=== PATIENT | female | born 1995 | race Caucasian/White ===

== ENCOUNTER 2019-08-26 13:38 | Emergency (ER) | payer BC, MEDICAID ==
[2019-08-26 17:25] VITALS: BP 121/80
--- NOTE | 2019-08-26 17:31 | UC ---
Throat Pain/Nasal Chris HPI - HPI Summary HPI Summary: subjective fever, sore throat for 2 days - History of Current Complaint Chief Complaint: UCGeneralIllness Stated Complaint: FEVER, SORE THROAT Time Seen by Provider: 08/26/19 16:08 Hx Obtained From: Patient Hx Last Menstrual Period: ?: No Onset/Duration: Sudden Onset, Lasting Days - 2 Pain Intensity: 2 Pain Scale Used: 0-10 Numeric Cough: None Associated Signs & Symptoms: Positive: Fever - subjective report - Allergies/Home Medications Allergies/Adverse Reactions: Allergies Allergy/AdvReac Type Severity Reaction Status Date / Time No Known Allergies Allergy Verified 08/30/19 04:19 Home Medications: Home Medications Norgestimate-Ethinyl Estradiol [Ortho-Cyclen 0.25-35 Mg-Mcg] 1 tab PO DAILY #1 vivien 11/24/13 [Clinic Confirmed 08/30/19] Acetaminophen [Tylenol Extra Strength] 1,000 mg PO ONCE PRN 08/28/19 [History Confirmed 08/30/19] Ibuprofen TAB* [Advil TAB*] 600 mg PO ONCE PRN 08/28/19 [History Confirmed 08/29] PMH/Surg Hx/FS Hx/Imm Hx - Additional Past Medical History Additional PMH: no know exposure to covid 19 Previously Healthy: Yes - Surgical History Surgical History: Yes Surgery Procedure, Year, and Place: ACL- 2013. [facility] - [facility] - 2010 - Family History Known Family History: Positive: None - Social History Occupation: Student Lives: With Family Alcohol Use: Weekly Substance Use Type: None Smoking Status (MU): Never Smoked Tobacco Review of Systems All Other Systems Reviewed And Are Negative: Yes Constitutional: Positive: Fever - subjective Skin: Positive: Negative Eyes: Positive: Negative ENT: Positive: Sore Throat Respiratory: Positive: Negative Cardiovascular: Positive: Negative Gastrointestinal: Positive: Negative Genitourinary: Positive: Negative Motor: Positive: Negative Neurovascular: Positive: Negative Musculoskeletal: Positive: Negative Neurological/Mental Status: Positive: Negative Psychological: Positive: Negative Is Patient Immunocompromised?: No Physical Exam Triage Information Reviewed: Yes Appearance: Well-Appearing, No Pain Distress, Well-Nourished Vital Signs: Initial Vital Signs Temp 97.9 F 08/26/19 17:21 Pulse 75 08/26/19 17:21 Resp 16 08/26/19 17:21 BP 121/80 03/14/20 17:21 Pulse Ox 100 08/26/19 17:21 Vital Signs Reviewed: Yes Eye Exam: Normal Eyes: Positive: Conjunctiva Clear ENT Exam: Normal ENT: Positive: Normal ENT inspection, Hearing grossly normal, TMs normal. Negative: Nasal congestion, Nasal drainage, Tonsillar swelling, Tonsillar exudate, Trismus, Muffled voice, Hoarse voice Dental Exam: Normal Neck exam: Normal Neck: Positive: Supple, Nontender Respiratory Exam: Normal Respiratory: Positive: Chest non-tender, Lungs clear, Normal breath sounds, No respiratory distress, No accessory muscle use Cardiovascular Exam: Normal Cardiovascular: Positive: RRR, No Murmur, Pulses Normal, Brisk Capillary Refill Musculoskeletal Exam: Normal Musculoskeletal: Positive: Strength Intact, ROM Intact, No Edema Neurological Exam: Normal Neurological: Positive: Alert, Muscle Tone Normal Psychological Exam: Normal Skin Exam: Normal Diagnostics - Laboratory Lab Results: rst - influenza a/b - Throat Pain/Nasal Course/Dx - Course Course Of Treatment: rest increase fluids, tylenol ibuprofen follow with pcp should symptoms worsen or fail to improve - Differential Dx/Diagnosis Provider Diagnosis: Pharyngitis Discharge ED - Sign-Out/Discharge Documenting (check all that apply): Patient Departure All imaging exams completed and their final reports reviewed: No Studies - Discharge Plan Condition: Stable Disposition: HOME Patient Education Materials: Pharyngitis (ED), Viral Syndrome (ED) Referrals: [facility] [Outside] - If Needed - Billing Disposition and Condition Condition: STABLE Disposition: Home
[2019-08-26 17:49] LABS: Influenza A Molecular Negative (Negative); Influenza B Molecular Negative (Negative)
== END 2019-08-26 18:23 | disposition home or self-care (01) ==
LOC: UCEAST 13:38
DX: J02.9 Acute pharyngitis, unspecified (principal)
CPT/HCPCS: 87651; 99201; G0463

== ENCOUNTER 2019-08-28 11:59 | Emergency (ER) | payer BC, MEDICAID ==
[2019-08-28 15:06] VITALS: BP 119/75
--- NOTE | 2019-08-28 15:36 | UC ---
Throat Pain/Nasal Chris HPI - HPI Summary HPI Summary: 24 year old female presents for persistent sore throat and fever. She was seen at this facility on 08/26/2019 for same. Tested negative for flu and strep. Max temperature of 102.4 F 2 days ago. Last measured fever of 100.1 F was yesterday. Denies ear pain, dysphagia, nasal congestion, cough, chest pain, shortness of breath, abdominal pain, nausea, or vomiting. - History of Current Complaint Chief Complaint: UCRespiratory Stated Complaint: THROAT COMPLAINT Time Seen by Provider: 08/28/19 14:31 Hx Obtained From: Patient Hx Last Menstrual Period: 08/21/19 Pain Intensity: 6 - Allergies/Home Medications Allergies/Adverse Reactions: Allergies Allergy/AdvReac Type Severity Reaction Status Date / Time No Known Allergies Allergy Verified 08/28/19 15:06 Home Medications: Home Medications Norgestimate-Ethinyl Estradiol [Ortho-Cyclen 0.25-35 Mg-Mcg] 1 tab PO DAILY #1 vivien 11/24/13 [Clinic Confirmed 08/28/19] Acetaminophen [Tylenol Extra Strength] 1,000 mg PO ONCE PRN 08/28/19 [History Confirmed 08/28/19] Ibuprofen TAB* [Advil TAB*] 600 mg PO ONCE PRN 08/28/19 [History Confirmed 08/27] PMH/Surg Hx/FS Hx/Imm Hx Previously Healthy: Yes - Denies significant PMH - Surgical History Surgical History: Yes Surgery Procedure, Year, and Place: ACL- 2013. [facility] - [facility] - 2010 - Family History Family History: Denies significant FMH - Social History Lives: Dormitory/Roommates Alcohol Use: Weekly Substance Use Type: None Smoking Status (MU): Never Smoked Tobacco Review of Systems All Other Systems Reviewed And Are Negative: Yes Constitutional: Positive: Fever, Chills, Fatigue Skin: Negative: Rash Eyes: Negative: Drainage, Eye Redness ENT: Positive: Sore Throat. Negative: Ear Ache, Nasal Discharge, Sinus Congestion, Sinus Pain/Tenderness Respiratory: Negative: Shortness Of Breath, Cough Cardiovascular: Negative: Chest Pain Gastrointestinal: Negative: Abdominal Pain, Vomiting, Diarrhea, Nausea Genitourinary: Positive: Negative Musculoskeletal: Positive: Negative Neurological/Mental Status: Positive: Negative Is Patient Immunocompromised?: No Physical Exam - Summary Physical Exam Summary: GENERAL APPEARANCE: Well developed, well nourished, alert and cooperative, and appears to be in no acute distress. EYES: Conjunctiva clear. No drainage. EARS: External auditory canals and tympanic membranes clear, hearing grossly intact. NOSE: No nasal discharge. THROAT: Pharyngeal erythema. 1+ tonsils without exudate or lesions. Uvula midline. NECK: Neck supple, non-tender. Mild anterior cervical lymphadenopathy. CARDIAC: Normal S1 and S2. No S3, S4 or murmurs. Rhythm is regular. There is no peripheral edema, cyanosis or pallor. Extremities are warm and well perfused. Capillary refill is less than 2 seconds. Peripheral pulses intact. LUNGS: Clear to auscultation without rales, rhonchi, wheezing or diminished breath sounds. ABDOMEN: Positive bowel sounds. Soft, nondistended, nontender. No guarding or rebound. No masses or hepatosplenomegally. MUSKULOSKELETAL: ROM intact to all extremities. No joint erythema or tenderness. Normal muscular development. Normal gait. SKIN: Skin normal color, texture and turgor with no lesions or eruptions. Triage Information Reviewed: Yes Vital Signs: Initial Vital Signs Temp 97.8 F 08/28/19 15:01 Pulse 96 08/28/19 15:01 Resp 16 08/28/19 15:01 BP 119/75 08/28/19 15:01 Pulse Ox 100 08/28/19 15:01 Vital Signs Reviewed: Yes Throat Pain/Nasal Course/Dx - Course Course Of Treatment: 24 year old female presents for persistent sore throat and fever. She was seen at this facility on 08/26/2019 for same. Tested negative for flu and strep. Max temperature of 102.4 F 2 days ago. Last measured fever of 100.1 F was yesterday. Denies ear pain, dysphagia, nasal congestion, cough, chest pain, shortness of breath, abdominal pain, nausea, or vomiting. Afebrile. VSS. Patient had no nasal congestion, normal TMs, pharyngeal erythema, 1+ tonsils without exudate, mild anterior cervical lymphadenopathy, clear bilateral breath sounds, and otherwise unremarkable exam. Rapid strep test was negative. Reviewed results with patient. Recommending symptomatic treatment for a viral pharyngitis. Patient was offered a steroid to help with the pain and inflammation which the patient is agreeable. She was given dexamethasone 8 mg PO. She is to return here or follow up with primary care in 5-7 days if symptoms persist. Anticipatory guidance and warning symptoms were reviewed with patient. Verbalizes understanding and agrees with POC. - Differential Dx/Diagnosis Differential Diagnosis/HQI/PQRI: Mononucleosis, Peritonsillar Abscess, Pharyngitis, Tonsillitis, URI Provider Diagnosis: Viral pharyngitis Discharge ED - Sign-Out/Discharge Documenting (check all that apply): Patient Departure All imaging exams completed and their final reports reviewed: No Studies - Discharge Plan Condition: Stable Disposition: HOME Patient Education Materials: Pharyngitis (ED) Referrals: No Primary Care Phys,NOPCP [Primary Care Provider] - Additional Instructions: Your rapid strep test in the clinic today was negative. Your symptoms are likely from a viral infection. Viral infections do not respond to antibiotics and are limited to the treatment of symptoms. Viral infections typically run their course in 7-10 days. You were given a long-acting steroid called dexamethasone 8 mg in the clinic to help with the pain and swelling. Drink plenty of fluids to avoid dehydration especially if you are running any fever. Use salt water gargles several times a day. Take over the counter acetaminophen (Tylenol) or ibuprofen (Advil, Motrin) according to directions as needed for pain or fever. You may also use Chloraseptic spray or Cepacol lonzenges according to directions which contain a numbing medication and can provide some temporary relief from your sore throat. Return here or follow up with your primary care provider in 5-7 days if symptoms persist. Seek immediate medical attention in the emergency room if you have fever greater than 100.5 F despite taking acetaminophen or ibuprofen, are unable to swallow or develop drooling, are unable to open your mouth fully, are unable to eat or drink, have pain that is not relieved with over the counter pain medication, or have any difficulty breathing. - Billing Disposition and Condition Condition: STABLE Disposition: Home
[2019-08-28] MEDS ORDERED: Dexamethasone TAB* 4 MG PO ONE (15:52)
== END 2019-08-28 16:05 | disposition home or self-care (01) ==
LOC: UCEAST 11:59
DX: J02.8 Acute pharyngitis due to other specified organisms (principal); B97.89 Other viral agents as the cause of diseases classified elsewhere; R53.83 Other fatigue
CPT/HCPCS: 87651; 99212; G0463; J8540

== ENCOUNTER 2019-08-30 04:09 | Emergency (ER) | payer BC ==
[2019-08-30] MEDS ORDERED: Dexamethasone TAB* 4 MG PO ONE (04:31)
--- NOTE | 2019-08-30 04:33 | ED ---
Throat Pain/Nasal Congestion - HPI Summary HPI Summary: Patient is a 24 y/o F presenting to [facility] with chief complaint of sore throat. She states that she had onset of fever, chills, and sore throat on 08/25/19. Patient has had two separate visits to in the past few days. Rapid strep and influenza testing were negative. She was diagnosed with viral pharyngitis. Patient reports that she received steroids during her most recent visit, which provided temporary relief in Sx. However, patient had return of sore throat last night. She additionally notes that it feels like her throat is more swollen. She has been able to drink and eat. Patient has been taking ibuprofen and does not currently have a fever. Home medications and allergies are reviewed. - History of Current Complaint Chief Complaint: EDThroatPain Time Seen by Provider: 08/30/19 04:26 Hx Obtained From: Patient Onset/Duration: Lasting Days, Still Present Severity: Severe Associated Signs And Symptoms: Positive: Negative Cough: None - Allergies/Home Medications Allergies/Adverse Reactions: Allergies Allergy/AdvReac Type Severity Reaction Status Date / Time No Known Allergies Allergy Verified 08/30/19 04:19 Home Medications: Home Medications Norgestimate-Ethinyl Estradiol [Ortho-Cyclen 0.25-35 Mg-Mcg] 1 tab PO DAILY #1 vivien 11/24/13 [Clinic Confirmed 08/30/19] Acetaminophen [Tylenol Extra Strength] 1,000 mg PO ONCE PRN 08/28/19 [History Confirmed 08/30/19] Ibuprofen TAB* [Advil TAB*] 600 mg PO ONCE PRN 08/28/19 [History Confirmed 08/29] PMH/Surg Hx/FS Hx/Imm Hx Endocrine/Hematology History: Denies: Hx Diabetes Cardiovascular History: Denies: Hx Hypertension, Hx Pacemaker/ICD History: Denies: Hx Renal Disease Sensory History: Denies: Hx Hearing Aid Psychiatric History: Denies: Hx Panic Disorder - Surgical History Surgery Procedure, Year, and Place: ACL- 2013. [facility] - [facility] - 2010 Infectious Disease History: No Infectious Disease History: Denies: Traveled Outside the [place] in Last 30 Days - Family History Known Family History: Negative: Respiratory Disease - Social History Alcohol Use: Weekly Substance Use Type: Reports: None Smoking Status (MU): Never Smoked Tobacco Review of Systems Positive: Fever, Chills Positive: Sore Throat, Other - throat swelling All Other Systems Reviewed And Are Negative: Yes Physical Exam - Summary Physical Exam Summary: Appearance: Well-appearing, Well-nourished, lying in bed comfortable Skin: Warm, dry, no obvious rash Eyes: sclera anicteric, no conjunctival pallor HENT: mucous membranes moist; Patient has symmetric peritonsilar swelling and redness with no exudate. No signs of peritonsilar abscess. Patient has a normal voice, no muffling or hoarseness noted. Neck: deferred Respiratory: No signs of respiratory distress Cardiovascular: Appears well perfused, pulses are nml Abdomen: deferred Musculoskeletal: Moving all 4 extremities without obvious discomfort Neurological: Awake and alert, mentation is normal, speech is fluent and appropriate Psychiatric: affect is normal, does not appear anxious or depressed Triage Information Reviewed: Yes Vital Signs On Initial Exam: Initial Vitals Temp Pulse Resp BP Pulse Ox 98.9 F 95 16 149/89 100 08/30/19 04:15 08/30/19 04:15 08/30/19 04:15 08/30/19 04:15 08/30/19 04:15 Vital Signs Reviewed: Yes Procedures - Sedation Patient Received Moderate/Deep Sedation with Procedure: No Diagnostics - Vital Signs Vital Signs Temp Pulse Resp BP Pulse Ox 08/30/19 04:15 98.9 F 95 16 149/89 100 - Laboratory Result Diagrams: 08/30/19 04:50 08/30/19 04:50 Lab Statement: Any lab studies that have been ordered have been reviewed, and results considered in the medical decision making process. EENT Course/Dx - Course Course Of Treatment: Patient is a 24 y/o F presenting to [facility] with chief complaint of sore throat. She states that she had onset of fever, chills, and sore throat on 08/25/19. Patient has had two separate visits to in the past few days. Rapid strep and influenza testing were negative. She was diagnosed with viral pharyngitis. Patient reports that she received steroids during her most recent visit, which provided temporary relief in Sx. However, patient had return of sore throat last night. She additionally notes that it feels like her throat is more swollen. She has been able to drink and eat. Patient has been taking ibuprofen and does not currently have a fever. Patient has symmetric peritonsilar swelling and redness with no exudate. No signs of peritonsilar abscess. Patient has a normal voice, no muffling or hoarseness noted. Bloodwork was obtained, abnormal values include WBC 12.3, Hgb 11.9, Hct 34, MPV 7.2, absolute neuts 8.1, absolute monos 1.3, calcium 8.2. Beta HCG was negative. Monoscreen was negative. During ED course, patient was given Decadron 8 mg PO. Patient was discharged to home with PCP followup as needed. - Diagnoses Provider Diagnoses: Pharyngitis Discharge ED - Sign-Out/Discharge Documenting (check all that apply): Patient Departure - discharge - Discharge Plan Condition: Stable Disposition: HOME Patient Education Materials: Pharyngitis (ED) Referrals: Erwin Mcdonnell MD [Medical Doctor] - If Needed Additional Instructions: Continue following the recommendations of the Urgent Care Center. Motrin or Alleve can help with pain. The steroid medication should help with symptoms as well. - Billing Disposition and Condition Condition: STABLE Disposition: Home - Attestation Statements Document Initiated by Dony: Yes Documenting Scribe: KAY DRUMMOND Provider For Whom Dony is Documenting (Include Credential): CORNEL OSPINA MD Scribe Attestation: KAY Quick, kapiled for CORNEL OSPINA MD on 08/30/19 at 0612. Scribe Documentation Reviewed: Yes Provider Attestation: The documentation as recorded by the KAY harmon accurately reflects the service I personally performed and the decisions made by me, CORNEL OSPINA MD Status of Scribe Document: Viewed
[2019-08-30 04:56] LABS: ABS Eosinophils 0.1 10^3/ul (0-0.6); ABS Lymphocytes 2.7 10^3/ul (1.0-4.8); ABS Monocytes 1.3 10^3/ul (0-0.8); ABS Neutrophils 8.1 10^3/ul (1.5-7.7); Eosinophil % 0.5 %; Hematocrit 34 % (35-47); Hemoglobin 11.9 g/dL (12.0-16.0); Lymphocyte % 22.2 %; Mean Corpuscular HGB Conc 35 g/dL (31-36); Mean Corpuscular Hemoglobin 31 pg (27-31); Mean Corpuscular Volume 86 fL (80-97); Mean Platelet Volume 7.2 fL (7.4-10.4); Nucleated Red Blood Cells % 0.1; Platelet Count 253 10^3/uL (150-450); Red Blood Count 3.89 10^6 /uL (3.70-4.87); Red Cell Distribution Width 12 % (10-15); White Blood Count 12.3 10^3/uL (3.5-10.8)
[2019-08-30 05:17] LABS: ALT 14 U/L (7-52); AST 13 U/L (13-39); Albumin 3.3 g/dL (3.2-5.2); Alkaline Phosphatase 66 U/L (34-104); Anion Gap 6 mmol/L (2-11); BUN/Creatinine Ratio 15.7 (8-20); Blood Urea Nitrogen 14 mg/dL (6-24); CO2 Carbon Dioxide 25 mmol/L (22-32); Calcium 8.2 mg/dL (8.6-10.3); Chloride 105 mmol/L (101-111); EGFR African American 95.1 (>60); EGFR Non-African American 78.6 (>60); Globulin 3.2 g/dL (2-4); Glucose 91 mg/dL (70-100); Potassium 4.1 mmol/L (3.5-5.0); Sodium 136 mmol/L (135-145); Total Protein 6.5 g/dL (6.4-8.9)
[2019-08-30 05:24] LABS: HCG Pregnancy < 0.60 mIU/mL
[2019-08-30 05:35] VITALS: BP 116/75
== END 2019-08-30 05:34 | disposition home or self-care (01) ==
LOC: ED 04:09
DX: J02.9 Acute pharyngitis, unspecified (principal)
CPT/HCPCS: 36415; 80053; 84702; 85025; 86308; 99282; J8540